=== PATIENT | female | born 1995 | race Caucasian/White ===

== ENCOUNTER 2017-05-29 20:21 | Emergency (ER) | payer BC, MEDICAID ==
--- NOTE | 2017-05-29 20:51 | EDM.PDOC ---
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 The patient reports a previous miscarriage. Since the initial symptoms, the patient has continued to have a small amount of vaginal bleeding and lower abdominal cramping. Onset: Today Onset Date: 05/29/17 Onset Time: 17:00 Duration: Intermittent Location: Reports: Abdomen Quality: Reports: Ache, Dull Severity: Moderate Improves with: Reports: None Worsens with: Reports: None Context: Reports: Other Associated Symptoms: Reports: No Other Symptoms Lower Abdomen Pain Score (Numeric/FACES): 5 - Related Data Allergies Allergy/AdvReac Type Severity Reaction Status Date / Time No Known Allergies Allergy Verified 05/29/17 21:06 Home Meds: Home Meds . [No Known Home Meds] 06/08/16 [History] Past Medical History - Past Health History Medical/Surgical History: Denies Medical/Surgical History Social & Family History - Family History Family Medical History: Noncontributory - Tobacco Use Smoking Status *Q: Unknown Ever Smoked - Caffeine Use Caffeine Use: Reports: Soda - Recreational Drug Use Recreational Drug Use: No - Sexual History Sexual History: Reports: Sexually Active - Living Situation & Occupation Living situation: Reports: Single, with Family Occupation: Employed ED ROS GENERAL - Review of Systems Review Of Systems: ROS reveals no pertinent complaints other than HPI. ED EXAM, GI/ABD - Physical Exam Exam: See Below Exam Limited By: No Limitations General Appearance: Alert, WD/WN, Anxious, Moderate Distress Eyes: Bilateral: Normal Appearance, EOMI Ears: Normal External Exam, Normal Canal, Hearing Grossly Normal, Normal TMs Nose: Normal Inspection, Normal Mucosa, No Blood Throat/Mouth: Normal Inspection, Normal Lips, Normal Teeth, Normal Gums, Normal Oropharynx, Normal Voice, No Airway Compromise Head: Atraumatic, Normocephalic Neck: Normal Inspection, Supple, Non-Tender, Full Range of Motion Respiratory/Chest: No Respiratory Distress, Lungs Clear, Normal Breath Sounds, No Accessory Muscle Use, Chest Non-Tender Cardiovascular: Normal Peripheral Pulses, Regular Rate, Rhythm, No Edema, No Gallop, No JVD, No Murmur, No Rub GI/Abdominal: Normal Bowel Sounds, Soft, No Organomegaly, No Distention, No Abnormal Bruit, No Mass, Pelvis Stable, Tenderness (mild lower abdominal tenderness) (Female) Exam: Deferred Rectal (Female) Exam: Deferred Back Exam: Normal Inspection, Full Range of Motion, NT Extremities: Normal Inspection, Normal Range of Motion, Non-Tender, Normal Capillary Refill, No Pedal Edema Neurological: Alert, Oriented, CN II-XII Intact, Normal Cognition, Normal Gait, Normal Reflexes, No Motor/Sensory Deficits Psychiatric: Normal Affect, Normal Mood Skin Exam: Warm, Dry, Intact, Normal Color, No Rash Lymphatic: No Adenopathy Course - Vital Signs Last Recorded V/S: Last Vital Signs Temp 36.6 C 05/29/17 20:22 Pulse 115 H 05/29/17 20:22 Resp 20 05/29/17 20:22 BP 129/72 05/29/17 20:22 Pulse Ox 100 05/29/17 20:22 - Orders/Labs/Meds Orders: Active Orders 24 hr Category Date Time Status OB Ltd 1 or More Fetus [US] Urgent Exams 05/29/17 21:46 Taken Labs: Laboratory Tests 05/29/17 05/29/17 05/29/17 Range/Units 20:40 20:40 20:45 WBC 15.1 H (5.0-10.0) 10^3/uL RBC 4.04 L (4.2-5.4) 10^6/uL Hgb 12.1 (12.0-16.0) g/dL Hct 34.7 L (37.0-47.0) % MCV 85.9 (80-100) fL MCH 30.0 (27.0-34.0) pg MCHC 34.9 (33.0-35.0) g/dL Plt Count 245 (150-450) 10^3/uL Neut % (Auto) 84.6 H (42.2-75.2) % Lymph % (Auto) 8.9 L (20.5-50.1) % [place] % (Auto) 6.0 (2-8) % Eos % (Auto) 0.4 L (1.0-3.0) % Baso % (Auto) 0.1 (0.0-1.0) % Sodium (135-145) mmol/L Potassium (3.6-5.0) mmol/L Chloride (101-111) mmol/L Carbon Dioxide (21.0-31.0) mmol/L Anion Gap BUN (7-18) mg/dL Creatinine (0.6-1.3) mg/dL Est Cr Clr Drug Dosing mL/min Estimated GFR (MDRD) BUN/Creatinine Ratio Glucose (74-105) mg/dL Calcium (8.4-10.2) mg/dl Total Bilirubin (0.2-1.0) mg/dL AST (10-42) IU/L ALT (10-60) IU/L Alkaline Phosphatase (42-121) IU/L Total Protein (6.7-8.2) g/dl Albumin (3.2-5.5) g/dl Globulin Albumin/Globulin Ratio HCG, Qual HCG, Quant (0-25) mIU/ml Beta HCG, Quant mIU/ml Urine Color Yellow (YELLOW) Urine Appearance Slightly cloudy (CLEAR) Urine pH 5.5 (5.0-9.0) Ur Specific [place] <= 1.005 (1.005-1.030) Urine Protein Negative (NEGATIVE) Urine Glucose (UA) Negative (NEGATIVE) Urine Ketones Negative (NEGATIVE) Urine Occult Blood Large H (NEGATIVE) Urine Nitrite Negative (NEGATIVE) Urine Bilirubin Negative (NEGATIVE) Urine Urobilinogen 0.2 (0.2-1.0) mg/dL Ur Leukocyte Esterase Small H (NEGATIVE) Urine RBC 30-40 H /HPF Urine WBC 30-40 H (0-5/HPF) /HPF Ur Epithelial Cells Moderate H /HPF Urine Bacteria Moderate H (0-FEW/HPF) /HPF Urine Opiates Screen Negative (NEGATIVE) Ur Oxycodone Screen Negative (NEGATIVE) Urine Methadone Screen Negative (NEGATIVE) Ur Barbiturates Screen Negative (NEGATIVE) U Tricyclic Antidepress Negative (NEGATIVE) Ur Phencyclidine Scrn Negative (NEGATIVE) Ur Amphetamine Screen Negative (NEGATIVE) U Methamphetamines Scrn Negative (NEGATIVE) Urine MDMA Screen Negative (NEGATIVE) U Benzodiazepines Scrn Negative (NEGATIVE) Urine Cocaine Screen Negative (NEGATIVE) U Marijuana (THC) Screen Negative (NEGATIVE) Blood Type 05/29/17 05/29/17 05/29/17 Range/Units 20:45 20:45 20:45 WBC (5.0-10.0) 10^3/uL RBC (4.2-5.4) 10^6/uL Hgb (12.0-16.0) g/dL Hct (37.0-47.0) % MCV (80-100) fL MCH (27.0-34.0) pg MCHC (33.0-35.0) g/dL Plt Count (150-450) 10^3/uL Neut % (Auto) (42.2-75.2) % Lymph % (Auto) (20.5-50.1) % [place] % (Auto) (2-8) % Eos % (Auto) (1.0-3.0) % Baso % (Auto) (0.0-1.0) % Sodium 137 (135-145) mmol/L Potassium 3.6 (3.6-5.0) mmol/L Chloride 104 (101-111) mmol/L Carbon Dioxide 23.0 (21.0-31.0) mmol/L Anion Gap 13.6 BUN 5 L (7-18) mg/dL Creatinine 0.5 L (0.6-1.3) mg/dL Est Cr Clr Drug Dosing 135.43 mL/min Estimated GFR (MDRD) > 60 BUN/Creatinine Ratio 10.00 Glucose 92 (74-105) mg/dL Calcium 9.2 (8.4-10.2) mg/dl Total Bilirubin 0.6 (0.2-1.0) mg/dL AST 16 (10-42) IU/L ALT 9 L (10-60) IU/L Alkaline Phosphatase 56 (42-121) IU/L Total Protein 7.0 (6.7-8.2) g/dl Albumin 3.8 (3.2-5.5) g/dl Globulin 3.2 Albumin/Globulin Ratio 1.19 HCG, Qual Cancelled HCG, Quant > 1370 H (0-25) mIU/ml Beta HCG, Quant 87716 mIU/ml Urine Color (YELLOW) Urine Appearance (CLEAR) Urine pH (5.0-9.0) Ur Specific [place] (1.005-1.030) Urine Protein (NEGATIVE) Urine Glucose (UA) (NEGATIVE) Urine Ketones (NEGATIVE) Urine Occult Blood (NEGATIVE) Urine Nitrite (NEGATIVE) Urine Bilirubin (NEGATIVE) Urine Urobilinogen (0.2-1.0) mg/dL Ur Leukocyte Esterase (NEGATIVE) Urine RBC /HPF Urine WBC (0-5/HPF) /HPF Ur Epithelial Cells /HPF Urine Bacteria (0-FEW/HPF) /HPF Urine Opiates Screen (NEGATIVE) Ur Oxycodone Screen (NEGATIVE) Urine Methadone Screen (NEGATIVE) Ur Barbiturates Screen (NEGATIVE) U Tricyclic Antidepress (NEGATIVE) Ur Phencyclidine Scrn (NEGATIVE) Ur Amphetamine Screen (NEGATIVE) U Methamphetamines Scrn (NEGATIVE) Urine MDMA Screen (NEGATIVE) U Benzodiazepines Scrn (NEGATIVE) Urine Cocaine Screen (NEGATIVE) U Marijuana (THC) Screen (NEGATIVE) Blood Type AB POSITIVE Departure - Departure Time of Disposition: 23:09 Disposition: Home, Self-Care 01 Condition: Fair Clinical Impression: Miscarriage - Discharge Information Instructions: Miscarriage, [id number] Forms: ED Department Discharge Care Plan Goals: The patient was advised of the examination, lab and ultrasound results during the visit. 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 If the patient has any additional symptoms or further concerns, the patient should follow-up with her briquette molder provider or return to the emergency department. - My Orders Last 24 Hours: My Active Orders 05/29/17 21:46 OB Ltd 1 or More Fetus [US] Urgent - Assessment/Plan Last 24 Hours: My Active Orders 05/29/17 21:46 OB Ltd 1 or More Fetus [US] Urgent
[2017-05-29 21:06] VITALS: BP 129/72
[2017-05-29 21:13] LABS: CHLORIDE,CL 104 mmol/L (101-111); SODIUM,NA 137 mmol/L (135-145)
== END 2017-05-29 23:17 | disposition home or self-care (01) ==
LOC: DL.ED 20:21
DX: O03.9 Complete or unspecified spontaneous abortion without complication (principal)
CPT/HCPCS: 36415; 76815; 80053; 80305; 81001; 84702; 85025; 86900; 86901; 99284

== ENCOUNTER 2017-05-30 09:25 | Observation (INO) | payer BC, MEDICAID ==
[2017-05-30 10:37] LABS: CHLORIDE,CL 104 mmol/L (101-111); SODIUM,NA 136 mmol/L (135-145)
[2017-05-30] MEDS ORDERED: Ketorolac 30 MG/ML SDV IM ONE (10:58)
--- NOTE | 2017-05-30 11:03 | EDM.PDOC ---
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 P 0, SAB2, L0 at 17 weeks gestation. Onset of pelvic cramping and vaginal bleeding yesterday. Patient was seen here last night and had an ultrasound confirming demise. Today at 0830 hours patient felt urge to urinate and passed an intact fetus into the toilet. Documented RH positive. 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 has had miscarriage in the past Social & Family History - Family History Family Medical History: Noncontributory - Tobacco Use Smoking Status *Q: Unknown Ever Smoked Second Hand Smoke Exposure: No - Caffeine Use Caffeine Use: Reports: Soda - Recreational Drug Use Recreational Drug Use: No - Sexual History Sexual History: Reports: Sexually Active - Living Situation & Occupation Living situation: Reports: Single, with Family Occupation: Employed ED ROS GENERAL - Review of Systems Review Of Systems: ROS reveals no pertinent complaints other than HPI. ED EXAM - Physical Exam Exam: See Below General Appearance: Alert, WD/WN, No Apparent Distress Neck: Normal Inspection, Supple, Non-Tender, Full Range of Motion Respiratory/Chest: No Respiratory Distress, Lungs Clear, Normal Breath Sounds, No Accessory Muscle Use, Chest Non-Tender Cardiovascular: Normal Peripheral Pulses, Regular Rate, Rhythm, No Edema, No Gallop, No JVD, No Murmur, No Rub GI/Abdominal: Other (small firm, mildly tender uterus) Rectal Exam: Deferred Extremities: Normal Inspection, Normal Range of Motion, Non-Tender, Normal Capillary Refill, No Pedal Edema Neurological: Alert, Oriented, CN II-XII Intact, Normal Cognition, Normal Gait, Normal Reflexes, No Motor/Sensory Deficits Psychiatric: Normal Affect, Normal Mood Skin Exam: Warm, Dry, Intact, Normal Color, No Rash Lymphatic: No Adenopathy Course - Vital Signs Last Recorded V/S: Last Vital Signs Temp 37.0 C 05/30/17 09:37 Pulse 105 H 05/30/17 09:37 Resp 18 05/30/17 09:37 BP 116/80 05/30/17 09:37 Pulse Ox 100 05/30/17 09:37 - Orders/Labs/Meds Labs: Laboratory Tests 05/30/17 05/30/17 05/30/17 Range/Units 10:09 10:09 10:09 WBC 17.0 H (5.0-10.0) 10^3/uL RBC 3.82 L (4.2-5.4) 10^6/uL Hgb 11.6 L (12.0-16.0) g/dL Hct 32.9 L (37.0-47.0) % MCV 86.1 (80-100) fL MCH 30.4 (27.0-34.0) pg MCHC 35.3 H (33.0-35.0) g/dL Plt Count 234 (150-450) 10^3/uL Neut % (Auto) 87.9 H (42.2-75.2) % Lymph % (Auto) 6.5 L (20.5-50.1) % [place] % (Auto) 5.2 (2-8) % Eos % (Auto) 0.3 L (1.0-3.0) % Baso % (Auto) 0.1 (0.0-1.0) % Sodium 136 (135-145) mmol/L Potassium 4.1 (3.6-5.0) mmol/L Chloride 104 (101-111) mmol/L Carbon Dioxide 23.0 (21.0-31.0) mmol/L Anion Gap 13.1 BUN 5 L (7-18) mg/dL Creatinine 0.6 (0.6-1.3) mg/dL Est Cr Clr Drug Dosing TNP Estimated GFR (MDRD) > 60 BUN/Creatinine Ratio 8.33 Glucose 80 (74-105) mg/dL Calcium 8.9 (8.4-10.2) mg/dl Total Bilirubin 0.6 (0.2-1.0) mg/dL AST 15 (10-42) IU/L ALT 7 L (10-60) IU/L Alkaline Phosphatase 59 (42-121) IU/L Total Protein 6.7 (6.7-8.2) g/dl Albumin 3.4 (3.2-5.5) g/dl Globulin 3.3 Albumin/Globulin Ratio 1.03 HCG, Quant > 1370 H (0-25) mIU/ml Beta HCG, Quant 64261 mIU/ml Urine Color (YELLOW) Urine Appearance (CLEAR) Urine pH (5.0-9.0) Ur Specific [place] (1.005-1.030) Urine Protein (NEGATIVE) Urine Glucose (UA) (NEGATIVE) Urine Ketones (NEGATIVE) Urine Occult Blood (NEGATIVE) Urine Nitrite (NEGATIVE) Urine Bilirubin (NEGATIVE) Urine Urobilinogen (0.2-1.0) mg/dL Ur Leukocyte Esterase (NEGATIVE) Urine RBC /HPF Urine WBC (0-5/HPF) /HPF Ur Epithelial Cells /HPF Urine Bacteria (0-FEW/HPF) /HPF Urine Mucus /LPF 05/30/17 Range/Units 10:13 WBC (5.0-10.0) 10^3/uL RBC (4.2-5.4) 10^6/uL Hgb (12.0-16.0) g/dL Hct (37.0-47.0) % MCV (80-100) fL MCH (27.0-34.0) pg MCHC (33.0-35.0) g/dL Plt Count (150-450) 10^3/uL Neut % (Auto) (42.2-75.2) % Lymph % (Auto) (20.5-50.1) % [place] % (Auto) (2-8) % Eos % (Auto) (1.0-3.0) % Baso % (Auto) (0.0-1.0) % Sodium (135-145) mmol/L Potassium (3.6-5.0) mmol/L Chloride (101-111) mmol/L Carbon Dioxide (21.0-31.0) mmol/L Anion Gap BUN (7-18) mg/dL Creatinine (0.6-1.3) mg/dL Est Cr Clr Drug Dosing Estimated GFR (MDRD) BUN/Creatinine Ratio Glucose (74-105) mg/dL Calcium (8.4-10.2) mg/dl Total Bilirubin (0.2-1.0) mg/dL AST (10-42) IU/L ALT (10-60) IU/L Alkaline Phosphatase (42-121) IU/L Total Protein (6.7-8.2) g/dl Albumin (3.2-5.5) g/dl Globulin Albumin/Globulin Ratio HCG, Quant (0-25) mIU/ml Beta HCG, Quant mIU/ml Urine Color Red (YELLOW) Urine Appearance Turbid (CLEAR) Urine pH 8.5 (5.0-9.0) Ur Specific [place] 1.020 (1.005-1.030) Urine Protein 100 H (NEGATIVE) Urine Glucose (UA) Negative (NEGATIVE) Urine Ketones 40 H (NEGATIVE) Urine Occult Blood Large H (NEGATIVE) Urine Nitrite Negative (NEGATIVE) Urine Bilirubin Small H (NEGATIVE) Urine Urobilinogen 0.2 (0.2-1.0) mg/dL Ur Leukocyte Esterase Negative (NEGATIVE) Urine RBC >100 H /HPF Urine WBC 0-5 (0-5/HPF) /HPF Ur Epithelial Cells Rare /HPF Urine Bacteria Rare (0-FEW/HPF) /HPF Urine Mucus Occasional /LPF Meds: Medications Discontinued Medications Generic Name Dose Route Start Last Admin Trade Name Bhupinder PRN Reason Stop Dose Admin Ketorolac Tromethamine 30 mg 05/30/17 10:58 Toradol IM 05/30/17 10:59 ONETIME ONE - Radiology Interpretation Free Text/Narrative:: 05/29/17 ultrasound: Per rad report reveals demise of the single intrauterine fetus having a gestational age of 16 weeks 2 days. Almost no intrauterine amniotic fluid. - Re-Assessments/Exams Free Text/Narrative Re-Assessment/Exam: 05/30/17 10:[address] Urbano. Pelvic examination deferred at this time. Departure - Departure Time of Disposition: 10:58 (Dr. Urbano) Disposition: Refer to Observation Condition: Fair Clinical Impression: Spontaneous miscarriage - Discharge Information Instructions: Miscarriage Forms: ED Department Discharge Additional Instructions: Ibuprofen 200mg 3 times by mouth every 6 hours with food as needed for pain or cramping. Dr. Beasley's nurse will contact you for follow up appointment. Return to ER if you develop fever or uncontrolled pain or heavy vaginal bleeding. I have read and agree with the documentation that has been completed regarding this visit. By signing this record, I attest that the documentation was completed in my physical presence and is an accurate record of the encounter.
--- NOTE | 2017-05-30 11:55 | PCM.HP ---
H&P History of Present Illness - General Date of Service: 05/30/17 - History of Present Illness Initial Comments - Free Text/Narative: 21-year-old presented to the ED after spontaneous miscarriage of 17-week fetus at home. She was seen in the ED yesterday where miscarriage was confirmed. Patient was discharged home at that time. Today, she had increased pain and bleeding. She miscarried the fetus in the bathroom at home. The placenta delivered in the ED. Patient has had minimal bleeding since then. She complains of some lower abdominal cramping but has no other complaints. Emotionally, her affect is somewhat flat but she states she is doing fine. Lower Abdomen Pain Score (Numeric/FACES): 6 - Related Data Allergies/Adverse Reactions: Allergies Allergy/AdvReac Type Severity Reaction Status Date / Time No Known Allergies Allergy Verified 05/30/17 09:35 Home Medications: Home Meds Vit #108/Iron/FA [ One Tablet] 1 tab PO DAILY 05/30/17 [History ] Past Medical History - Past Health History Medical/Surgical History: Denies Medical/Surgical History RN REHABILITATION History: Reports: Other (See Below) Other OB/BYN History: had some first trimester spotting with this . has had miscarriage in the past Social & Family History - Family History Family Medical History: Noncontributory - Tobacco Use Smoking Status *Q: Unknown Ever Smoked Second Hand Smoke Exposure: No - Caffeine Use Caffeine Use: Reports: Soda - Recreational Drug Use Recreational Drug Use: No - Sexual History Sexual History: Reports: Sexually Active - Living Situation & Occupation Living situation: Reports: Single, with Family Occupation: Employed H&P Review of Systems - Review of Systems: Review Of Systems: See Below General: Reports: No Symptoms HEENT: Reports: No Symptoms Pulmonary: Reports: No Symptoms Cardiovascular: Reports: No Symptoms Gastrointestinal: Reports: Abdominal Pain Genitourinary: Reports: No Symptoms Musculoskeletal: Reports: No Symptoms Skin: Reports: No Symptoms Exam - Exam Exam: See Below - Vital Signs Vital Signs: Last Vital Signs Temp 37.0 C 05/30/17 09:37 Pulse 105 H 05/30/17 09:37 Resp 18 05/30/17 09:37 BP 116/80 05/30/17 09:37 Pulse Ox 100 05/30/17 09:37 Weight: 60.328 kg - Exam General: Alert, Oriented HEENT: Conjunctiva Clear, Mucosa Moist & [place] Abdomen: Normal Bowel Sounds, Other (Minimal tenderness to suprapubic region. Uterus is not palpable) - Patient Data Lab Results Last 24 hrs: Laboratory Results - last 24 hr 05/30/17 05/30/17 05/30/17 Range/Units 10:09 10:09 10:09 WBC 17.0 H (5.0-10.0) 10^3/uL RBC 3.82 L (4.2-5.4) 10^6/uL Hgb 11.6 L (12.0-16.0) g/dL Hct 32.9 L (37.0-47.0) % MCV 86.1 (80-100) fL MCH 30.4 (27.0-34.0) pg MCHC 35.3 H (33.0-35.0) g/dL Plt Count 234 (150-450) 10^3/uL Neut % (Auto) 87.9 H (42.2-75.2) % Lymph % (Auto) 6.5 L (20.5-50.1) % [place] % (Auto) 5.2 (2-8) % Eos % (Auto) 0.3 L (1.0-3.0) % Baso % (Auto) 0.1 (0.0-1.0) % Sodium 136 (135-145) mmol/L Potassium 4.1 (3.6-5.0) mmol/L Chloride 104 (101-111) mmol/L Carbon Dioxide 23.0 (21.0-31.0) mmol/L Anion Gap 13.1 BUN 5 L (7-18) mg/dL Creatinine 0.6 (0.6-1.3) mg/dL Est Cr Clr Drug Dosing TNP Estimated GFR (MDRD) > 60 BUN/Creatinine Ratio 8.33 Glucose 80 (74-105) mg/dL Calcium 8.9 (8.4-10.2) mg/dl Total Bilirubin 0.6 (0.2-1.0) mg/dL AST 15 (10-42) IU/L ALT 7 L (10-60) IU/L Alkaline Phosphatase 59 (42-121) IU/L Total Protein 6.7 (6.7-8.2) g/dl Albumin 3.4 (3.2-5.5) g/dl Globulin 3.3 Albumin/Globulin Ratio 1.03 HCG, Quant > 1370 H (0-25) mIU/ml Beta HCG, Quant 88688 mIU/ml Urine Color (YELLOW) Urine Appearance (CLEAR) Urine pH (5.0-9.0) Ur Specific [place] (1.005-1.030) Urine Protein (NEGATIVE) Urine Glucose (UA) (NEGATIVE) Urine Ketones (NEGATIVE) Urine Occult Blood (NEGATIVE) Urine Nitrite (NEGATIVE) Urine Bilirubin (NEGATIVE) Urine Urobilinogen (0.2-1.0) mg/dL Ur Leukocyte Esterase (NEGATIVE) Urine RBC /HPF Urine WBC (0-5/HPF) /HPF Ur Epithelial Cells /HPF Urine Bacteria (0-FEW/HPF) /HPF Urine Mucus /LPF 05/30/17 Range/Units 10:13 WBC (5.0-10.0) 10^3/uL RBC (4.2-5.4) 10^6/uL Hgb (12.0-16.0) g/dL Hct (37.0-47.0) % MCV (80-100) fL MCH (27.0-34.0) pg MCHC (33.0-35.0) g/dL Plt Count (150-450) 10^3/uL Neut % (Auto) (42.2-75.2) % Lymph % (Auto) (20.5-50.1) % [place] % (Auto) (2-8) % Eos % (Auto) (1.0-3.0) % Baso % (Auto) (0.0-1.0) % Sodium (135-145) mmol/L Potassium (3.6-5.0) mmol/L Chloride (101-111) mmol/L Carbon Dioxide (21.0-31.0) mmol/L Anion Gap BUN (7-18) mg/dL Creatinine (0.6-1.3) mg/dL Est Cr Clr Drug Dosing Estimated GFR (MDRD) BUN/Creatinine Ratio Glucose (74-105) mg/dL Calcium (8.4-10.2) mg/dl Total Bilirubin (0.2-1.0) mg/dL AST (10-42) IU/L ALT (10-60) IU/L Alkaline Phosphatase (42-121) IU/L Total Protein (6.7-8.2) g/dl Albumin (3.2-5.5) g/dl Globulin Albumin/Globulin Ratio HCG, Quant (0-25) mIU/ml Beta HCG, Quant mIU/ml Urine Color Red (YELLOW) Urine Appearance Turbid (CLEAR) Urine pH 8.5 (5.0-9.0) Ur Specific [place] 1.020 (1.005-1.030) Urine Protein 100 H (NEGATIVE) Urine Glucose (UA) Negative (NEGATIVE) Urine Ketones 40 H (NEGATIVE) Urine Occult Blood Large H (NEGATIVE) Urine Nitrite Negative (NEGATIVE) Urine Bilirubin Small H (NEGATIVE) Urine Urobilinogen 0.2 (0.2-1.0) mg/dL Ur Leukocyte Esterase Negative (NEGATIVE) Urine RBC >100 H /HPF Urine WBC 0-5 (0-5/HPF) /HPF Ur Epithelial Cells Rare /HPF Urine Bacteria Rare (0-FEW/HPF) /HPF Urine Mucus Occasional /LPF Result Diagrams: 05/30/17 10:09 05/30/17 10:09 *Q Meaningful Use (ADM) - VTE *Q VTE Criteria *Q: - Stroke *Q Stroke Criteria *Q: - AMI *Q AMI Criteria *Q: - Problem List (1) Miscarriage SNOMED Code(s): 41136145 ICD Code: O03.9 - COMPLETE OR UNSP SPONTANEOUS WITHOUT COMPLICATION Status: Acute (2) Spontaneous miscarriage SNOMED Code(s): 78761575 ICD Code: O03.9 - COMPLETE OR UNSP SPONTANEOUS WITHOUT COMPLICATION Status: Acute Problem List Initiated/Reviewed/Updated: Yes Assessment/Plan Comment:: 21-year-old female status post 2nd trimester spontaneous miscarriage Patient is currently stable with minimal pain or vaginal bleeding. Will give 1 dose Toradol for pain followed by ibuprofen as needed. Will monitor for approximately 8 hours. If patient is doing well, she can be discharged at that time. I did discuss the option for sending the fetus for pathology. Patient does not think that she would like to do that but will consider it. Patient has also declined to see the fetus. My nurse will contact the patient tomorrow to see how she is doing and schedule an appointment for the following week. She was advised to abstain from intercourse until that appointment. Patient voiced her understanding, and all questions were answered. Aleksandra Urbano MD
[2017-05-30] MEDS ORDERED: Sodium Chloride 0.9% 10 ML Syringe FLUSH PRN (13:31)
[2017-05-30 16:48] VITALS: BP 111/72
--- NOTE | 2017-06-10 13:38 | PCM.SN ---
- Free Text/Narrative Note: 05/30/17 Discharge summary Patient observed for 5-6 hours as planned. No significant pain or vaginal bleeding. She was discharged home with follow-up with me in about 10 days. Reasons to return sooner or discussed with the patient. For more information please see history and physical. Aleksandra Urbano MD
== END 2017-05-30 16:45 | disposition home or self-care (01) ==
LOC: DL.ED 09:25 → DL.MS 12:12 → UNDOADMOB 12:12 → DL.MS 12:30 → UNDODISOB 16:45
PROVIDERS: ADMIT Family Medicine; ATTEND Family Medicine
DX: O03.9 Complete or unspecified spontaneous abortion without complication (principal)
CPT/HCPCS: 36415; 80053; 81001; 84702; 85025; 96372; 99285; J1885; G0378

== ENCOUNTER 2019-03-08 11:11 | Inpatient (IN) | payer BC, MEDICAID ==
[2019-03-08] MEDS ORDERED: Tranexamic Acid 1,000 MG in Sodium Chloride 0.9% 100 ML IV PRN (12:17)
[2019-03-08] MEDS ORDERED: Methylergonovine 0.2 MG/1 ML Amp IM PRN (12:17)
[2019-03-08] MEDS ORDERED: fentaNYL 100 MCG/2 ML SDV IVPUSH PRN (12:17)
[2019-03-08] MEDS ORDERED: Lactated Ringers 500 ML IV ONE (12:17)
[2019-03-08] MEDS ORDERED: Sodium Chloride 0.9% 10 ML Syringe FLUSH PRN (12:17)
[2019-03-08] MEDS ORDERED: Ondansetron 4 MG/2 ML SDV IV PRN (12:17)
[2019-03-08] MEDS ORDERED: Misoprostol 400 MCG (4 X 100 MCG TAB) RECTAL PRN (12:17)
[2019-03-08] MEDS ORDERED: Carboprost Tromethamine 250 MCG/1 ML Amp IM PRN (12:17)
[2019-03-08] MEDS ORDERED: Lidocaine 1% 30 ML SDV INJECT PRN (12:17)
--- NOTE | 2019-03-08 12:17 | PCM.LDHP ---
L&D History of Present Illness - General Date of Service: 03/08/19 Admit Problem/Dx: Admission Diagnosis/Problem Admission Diagnosis/Problem Source of Information: Patient History Limitations: Reports: No Limitations - History of Present Illness Introduction:: at 38w5d presents to L&D from clinic for IOL due to mild pre-eclampsia. Patient has had mildly elevated blood pressures for the past 2 days. She did a 24-hour urine protein which was 470. No headaches or vision changes. Baby has been active. She has had some Mahad-Chisholm contractions but no regular contractions. No vaginal bleeding or leaking of fluid. was complicated by history of miscarriage x2. Patient was on vaginal progresterone from around 10 weeks to 36 weeks gestation. 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 has had miscarriage in the past Hematologic History: Reports: Anemia Social & Family History - Family History Family Medical History: Noncontributory Respiratory: Reports: Asthma Other Respiratory Family Hisory: dad and sister have asthma - Caffeine Use Caffeine Use: Reports: Coffee, Soda - Sexual History Sexual History: Reports: Sexually Active - Living Situation & Occupation Living situation: Reports: Single, with Family Occupation: Employed H&P Review of Systems - Review of Systems: Review Of Systems: See Below General: Reports: No Symptoms HEENT: Reports: No Symptoms Pulmonary: Reports: No Symptoms Cardiovascular: Reports: No Symptoms Gastrointestinal: Reports: No Symptoms Genitourinary: Reports: No Symptoms Musculoskeletal: Reports: No Symptoms Skin: Reports: No Symptoms Psychiatric: Reports: Anxiety Neurological: Reports: No Symptoms Hematologic/Lymphatic: Reports: No Symptoms L&D Exam - Exam Exam: See Below - OB Specific Fundal Height In cm: 39 Contraction Intensity: Irritability Movement: Active Heart Tones: Present Heart Tones per Min: 140 Heart Rate (FHR) Variability: Moderate (6-25 bmp) Presentation: Vertex - Paul Score Paul Score Cervix Position: Anterior Paul Score Consistency: Soft Paul Score Effacement: 51-70% Paul Score Dilation: 3-4 cm Paul Score Infant's Station: -2 Paul Score Total: 9 - Exam General: Alert, Oriented HEENT: Mucosa Moist & [place], Posterior Pharynx Clear Lungs: Clear to Auscultation, Normal Respiratory Effort Cardiovascular: Regular Rate, Regular Rhythm. No: Systolic Murmur, Diastolic Murmur Genitourinary: Normal external exam Back Exam: Normal Inspection Extremities: Pedal Edema (+1 to lower extremities bilaterally) Skin: Warm, Dry, Intact - Patient Data Result Diagrams: 03/08/19 11:33 03/08/19 11:33 - Problem List (1) Mild pre-eclampsia SNOMED Code(s): 04329310 ICD Code: O14.00 - MILD TO MODERATE PRE-ECLAMPSIA, UNSPECIFIED TRIMESTER Status: Acute Current Visit: Yes (2) care in third trimester SNOMED Code(s): 606501761, 71454013, 24061017, 232372840, 599055111 ICD Code: Z34.93 - ENCNTR FOR SUPRVSN OF NORMAL PREG, UNSP, THIRD TRIMESTER Status: Acute Current Visit: No Problem List Initiated/Reviewed/Updated: Yes Assessment/Plan Comment:: 23-year-old at 38w5d presented to L&D for IOL secondary to mild pre- eclampsia 1. Admit to L&D 2. Initiate pitocin for augmentation 3. AROM when able 4. Closely monitor BPs 5. Expectant management. Anticipate Aleksandra Urbano MD
[2019-03-08] MEDS ORDERED: hydrOXYzine HCl 25 MG Tab PO PRN (12:22)
[2019-03-08] MEDS ORDERED: Nalbuphine 10 MG/1 ML Vial IM PRN (12:22)
[2019-03-08] MEDS ORDERED: Nalbuphine 10 MG/1 ML Vial IV PRN (12:22)
[2019-03-08] MEDS ORDERED: Lactated Ringers 1,000 ML IV SCH (12:30)
[2019-03-08] MEDS: Oxytocin/Normal Saline 30 UNIT/500 ML BAG IV SCH (13:03)
[2019-03-08] MEDS ORDERED: Simethicone 80 MG Tab.Chew PO PRN (23:38)
[2019-03-08] MEDS ORDERED: Oxytocin 10 Units/1 ML SDV IM PRN (23:38)
[2019-03-08] MEDS ORDERED: Benzocaine/Menthol 20%-0.5% Spray 56 GM Canister TOP PRN (23:38)
--- NOTE | 2019-03-08 23:47 | PCM.DEL ---
L & D Note - General Info Date of Service: 03/08/19 Mother's Due Date: 03/17/19 - Delivery Note Labor: Augmented by ARM, Augmented by Oxytocin Delivery Outcome: Livebirth Delivery Method: Spontaneous Vaginal Delivery-Single Infant Delivery Mode: Vacuum Extraction Presentation: Vertex Nuchal Cord: None Anesthesia Type: Local Anesthetic: Lidocaine (Xylocaine) 1% Plain Local Anesthetic Volume: Other (10 cc) Amniotic Fluid Description: Clear Episiotomy Type: None Laceration: 2nd Degree, Perineal Suture type: Vicryl Suture size: 3-0 Placenta: Intact, Spontaneous Cord: 3 Vessels Estimated Blood Loss: 250 Resuscitation Needed: Yes : Bulb Syringe, Stimulated, Warmed, [place] Used, Warmer Used Provider: Aleksandra Urbano Score 1 min: 1 Score 5 min: 7 Delivery Comments (Free Text/Narrative):: 23-year-old presented to L&D for IOL due to mild pre-eclampsia. Pitocin was started for induction of labor. About 3 hours later, AROM was performed for moderate amount of clear fluid. Patient progressed to complete dilation. She then pushed for about 30 minutes. Due to maternal fatigue and heart rate deceleration with contractions, the decision was made to proceed with vacuum-assisted vaginal delivery. A low-profile vacuum was applied at 2300. Vacuum was used for 11 minutes with good movement of the head. At 2311, patient delivered a viable female . Dr. Jay was called due to persistently low heart rate. A posterior hand was noted near the face. Baby was initially placed on mother's abdomen but was then taken to the warmer for resuscitation after cord was clamped x2 and cut. Baby weighed 7 pounds, 12 ounces. Apgars were 1 and 7 at 1 and 5 minutes respectively. Cord blood was collected. A second degree perineal laceration was repaired in the usual fashion. The placenta delivered spontaneously about 15 minutes after delivery of the baby. Pitocin was started. Bleeding was noted to be appropriate, and uterine fundus was noted to be firm. The patient tolerated the procedure well, and there were no immediate complications. Induction Criteria - Paul Score Paul Score Dilation: 3-4 cm Paul Score Effacement: 60-70% Paul Score 's Station: -1 ,0 Paul Score Consistency: Soft Paul Score Cervix Position: Anterior Paul Score Total: 10 Paul Score Presenting Part: Reports: Cephalic - Induction Gestational Age >/= 39 wks: No Medical Indication: Mild pre-eclampsia Estimated Pelvis: Reports: Adequate Reassuring Monitoring Strip: Yes Absence of Tachy Systole: Yes - Augmentation Estimated Pelvis: Reports: Adequate Weight Estimated:: Reports: AGA Reassuring Monitoring Strip: Yes Absence of Tachy Systole: Yes Vacuum Extractor Progress Note - Alternative Labor Strategies Considered Alternative Labor Strategies Considered:: Reports: Yes Strategies Considered:: Reports: Contraction Intensity Adequate, Position Changes Used to Facilitate Rotation & Descent, Empty Bladder Indications Considered:: Reports: Yes Indications:: Reports: Shortening of 2nd Stage for Maternal Benefit, Suspicion of Immediate or Potential Compromise Time Out:: Reports: No - Patient Prepared Patient Prepared:: Reports: Yes Informed Consent:: Reports: Verbal Risks: Reports: Yes Risks Include:: Reports: Laceration, Shoulder Dystocia, Maternal Injury - Probability of Success High Probability of Success:: Reports: Yes Weight Estimated:: Reports: AGA Patient Diabetic:: Reports: No Pelvis Adequate:: Reports: Yes Asynclitic:: Reports: No Station:: +2 - Application Time Maximum Application Time & Number of Pop-Offs Predetermined:: Reports: Yes (3) Total Application Time (min): *max=20min: 11 Number of Times Cup Disengaged:: 0 Type of Vacuum Used:: Reports: Low profile Vacuum Extraction: Successful - Exit Strategy Exit strategy available:: Reports: Yes and resuscitation teams readily available:: Reports: Yes - General Info Date of Service: 03/08/19 - Patient Data Vitals - Most Recent: Last Vital Signs Temp 36.4 C 03/08/19 21:00 Pulse 98 03/08/19 21:30 Resp 20 03/08/19 21:30 BP 149/88 H 03/08/19 21:30 Pulse Ox 98 03/08/19 12:30 Weight - Most Recent: 90.265 kg Lab Results Last 24 Hours: Laboratory Results - last 24 hr 03/08/19 03/08/19 Range/Units 11:33 11:33 WBC 10.0 (5.0-10.0) 10^3/uL RBC 4.03 L (4.2-5.4) 10^6/uL Hgb 12.1 (12.0-16.0) g/dL Hct 35.6 L (37.0-47.0) % MCV 88.3 (80-100) fL MCH 30.0 (27.0-34.0) pg MCHC 34.0 (33.0-35.0) g/dL Plt Count 235 (150-450) 10^3/uL BUN 5 L (7-18) mg/dL Creatinine 0.5 L (0.6-1.3) mg/dL Est Cr Clr Drug Dosing TNP Estimated GFR (MDRD) > 60 Uric Acid 3.3 (2.6-7.2) mg/dL AST 17 (10-42) IU/L ALT 11 (10-60) IU/L Lactate Dehydrogenase 132 (91-180) IU/L Med Orders - Current: Current Medications Acetaminophen (Tylenol) 650 mg PO Q4H PRN PRN Reason: Pain (Mild 1-3) and fever Benzocaine/Menthol (Dermoplast Pain Relief [place]) 0 gm TOP Q4H PRN PRN Reason: Perineal comfort measures Carboprost Tromethamine (Hemabate Ds) 250 mcg IM ASDIRECTED PRN PRN Reason: HEMORRHAGE Docusate Sodium (Colace) 100 mg PO BID PRN PRN Reason: Constipation Hydroxyzine HCl (Atarax) 50 mg PO BID PRN PRN Reason: Anxiety Oxytocin/Sodium Chloride (Pitocin In Ns 30 Unit/500 Ml) 30 unit in 500 mls @ 2 mls/hr IV TITRATE PRESTON; Protocol Last Titration: 03/08/19 23:28 Dose: 500 mls/hr Ibuprofen (Motrin) 800 mg PO Q8H PRN PRN Reason: Mild Pain or Fever Methylergonovine Maleate (Methergine) 0.2 mg IM ASDIRECTED PRN PRN Reason: Hemorrhage Misoprostol (Cytotec) 800 mcg RECTAL ASDIRECTED PRN PRN Reason: Hemorrhage Ondansetron HCl (Zofran) 4 mg IV Q4H PRN PRN Reason: Nausea/Vomiting Oxytocin (Pitocin) 10 unit IM ONETIME PRN PRN Reason: Bleeding Simethicone (Simethicone) 80 mg PO Q4H PRN PRN Reason: Gas Sodium Chloride (Saline Flush) 10 ml FLUSH ASDIRECTED PRN PRN Reason: Keep Vein Open Discontinued Medications Fentanyl (Sublimaze) 50 mcg IVPUSH Q1H PRN PRN Reason: Pain (moderate 4-6) Lactated Ringer's (Ringers, Lactated) 500 mls @ 999 mls/hr IV .BOLUS ONE Stop: 03/08/19 12:47 Lactated Ringer's (Ringers, Lactated) 1,000 mls @ 125 mls/hr IV ASDIRECTED PRESTON Last Admin: 03/08/19 13:03 Dose: 125 mls/hr Tranexamic Acid 1,000 mg/ (Sodium Chloride) 110 mls @ 660 mls/hr IV ONETIME PRN PRN Reason: Bleeding Lidocaine HCl (Xylocaine-Mpf 1%) 30 ml INJECT ASDIRECTED PRN PRN Reason: Perineal Repair Last Admin: 03/08/19 23:15 Dose: 30 ml Nalbuphine HCl (Nubain) 20 mg IM Q3H PRN PRN Reason: Pain Last Admin: 03/08/19 20:36 Dose: 20 mg Nalbuphine HCl (Nubain) 10 mg IV Q3H PRN PRN Reason: Pain - Problem List & Annotations (1) Status post vacuum-assisted vaginal delivery SNOMED Code(s): 704843944, 50291554620326598 Code(s): Z87.59 - PERSONAL HISTORY OF COMP OF PREG, CHLDBRTH AND THE PUERP Status: Acute Current Visit: Yes (2) Perineal laceration during delivery SNOMED Code(s): 698984049 Code(s): O70.9 - PERINEAL LACERATION DURING DELIVERY, UNSPECIFIED Status: Acute Current Visit: Yes (3) Mild pre-eclampsia SNOMED Code(s): 23146399 Code(s): O14.00 - MILD TO MODERATE PRE-ECLAMPSIA, UNSPECIFIED TRIMESTER Status: Acute Current Visit: Yes (4) care in third trimester SNOMED Code(s): 766379031, 06969851, 01517160, 252225204, 587063762 Code(s): Z34.93 - ENCNTR FOR SUPRVSN OF NORMAL PREG, UNSP, THIRD TRIMESTER Status: Acute Current Visit: No - Problem List Review Problem List Initiated/Reviewed/Updated: Yes - My Orders Last 24 Hours: My Active Orders 03/08/19 12:17 Patient Status [ADT] Routine Notify Provider Vital Signs OB [RC] ASDIRECTED Up ad Dia [RC] ASDIRECTED Acetaminophen [Tylenol] 650 mg PO Q4H PRN Carboprost Tromethamine [Hemabate DS] 250 mcg IM ASDIRECTED PRN Methylergonovine [Methergine] 0.2 mg IM ASDIRECTED PRN Ondansetron [Zofran] 4 mg IV Q4H PRN Sodium Chloride 0.9% [Saline Flush] 10 ml FLUSH ASDIRECTED PRN miSOPROStol [Cytotec] 800 mcg RECTAL ASDIRECTED PRN Saline Lock Insert [OM.PC] Routine Resuscitation Status Routine 03/08/19 12:21 Communication Order [RC] ASDIRECTED Communication Order [RC] ASDIRECTED Communication Order [RC] ASDIRECTED Communication Order [RC] ASDIRECTED Notify Provider [RC] PRN Vaginal Exam [RC] PRN 03/08/19 12:22 hydrOXYzine HCl [Atarax] 50 mg PO BID PRN 03/08/19 12:30 Oxytocin/Normal Saline [Pitocin in NS 30 UNIT/500 ML] 30 unit in 500 ml IV TITRATE 03/08/19 23:38 Vital Signs [RC] PFP Consult to Repair Service Clerk [CONS] Routine Benzocaine/Menthol [Dermoplast Pain Relief [place]] See Dose Instructions TOP Q4H PRN Docusate Sodium [Colace] 100 mg PO BID PRN Ibuprofen [Motrin] 800 mg PO Q8H PRN Oxytocin [Pitocin] 10 unit IM ONETIME PRN Simethicone 80 mg PO Q4H PRN Assess Lochia [WOMSER] Per Unit Routine Assess Uterine Involution [WOMSER] Per Unit Routine Breast Pump [WOMSER] Per Unit Routine Ice Therapy [OM.PC] Per Unit Routine Perineal Care [OM.PC] Per Unit Routine Sitz Bath [OM.PC] Per Unit Routine 03/08/19 Lunch Regular Diet [DIET] - Assessment Assessment:: 23-year-old, now , status post VAVD at 38w5d after IOL for mild pre- eclampsia - Plan Plan:: 1. Initiate routine orders 2. Mother plans to breastfeed 3. Anticipate discharge 03/10/19 Aleksandra Urbano MD
[2019-03-09] MEDS: Oxytocin/Normal Saline 30 UNIT/500 ML BAG IV SCH (01:30)
[2019-03-09] MEDS: Ibuprofen 800 MG Tab PO PRN ×3 (03:55→22:31)
[2019-03-09] MEDS: Acetaminophen 325 MG Tab PO PRN ×2 (08:39→19:29)
[2019-03-09] MEDS: Docusate Sodium 100 MG Cap PO PRN ×2 (08:40→19:29)
[2019-03-10] MEDS: Docusate Sodium 100 MG Cap PO PRN (07:57)
--- NOTE | 2019-03-10 09:26 | PCM.PNPP ---
- General Info Date of Service: 03/09/19 Subjective Update: PPD#1 status post VAVD at 38w5d after IOL for mild pre-eclampsia. Patient is doing well. Tolerating a general diet. Ambulating without difficulty. Voiding and and passing gas. No bowel movement yet. No fever, chills, nausea, vomiting, dizziness or lightheadedness. has been a challenge due to difficult latch. Currently using a nipple shield. Functional Status: Reports: Pain Controlled, Tolerating Diet, Ambulating, Urinating. Denies: New Symptoms - Review of Systems General: Reports: No Symptoms HEENT: Reports: No Symptoms Pulmonary: Reports: No Symptoms Cardiovascular: Reports: No Symptoms Gastrointestinal: Reports: No Symptoms Genitourinary: Reports: No Symptoms Musculoskeletal: Reports: Back Pain Psychiatric: Reports: No Symptoms - General Info Date of Service: 03/09/19 - Patient Data Vital Signs - Most Recent: Last Vital Signs Temp 35.9 C 03/10/19 07:24 Pulse 94 03/10/19 07:24 Resp 18 03/10/19 07:24 BP 133/82 03/10/19 07:24 Pulse Ox 98 03/10/19 07:24 Weight - Most Recent: 90.265 kg Med Orders - Current: Current Medications Acetaminophen (Tylenol) 650 mg PO Q4H PRN PRN Reason: Pain (Mild 1-3) and fever Last Admin: 03/09/19 19:29 Dose: 650 mg Benzocaine/Menthol (Dermoplast Pain Relief [place]) 0 gm TOP Q4H PRN PRN Reason: Perineal comfort measures Last Admin: 03/09/19 03:55 Dose: 1 spray Carboprost Tromethamine (Hemabate Ds) 250 mcg IM ASDIRECTED PRN PRN Reason: HEMORRHAGE Docusate Sodium (Colace) 100 mg PO BID PRN PRN Reason: Constipation Last Admin: 03/10/19 07:57 Dose: 100 mg Hydroxyzine HCl (Atarax) 50 mg PO BID PRN PRN Reason: Anxiety Oxytocin/Sodium Chloride (Pitocin In Ns 30 Unit/500 Ml) 30 unit in 500 mls @ 2 mls/hr IV TITRATE PRESTON; Protocol Last Titration: 03/09/19 03:20 Dose: 0 mls/hr Ibuprofen (Motrin) 800 mg PO Q8H PRN PRN Reason: Mild Pain or Fever Last Admin: 03/09/19 22:31 Dose: 800 mg Methylergonovine Maleate (Methergine) 0.2 mg IM ASDIRECTED PRN PRN Reason: Hemorrhage Misoprostol (Cytotec) 800 mcg RECTAL ASDIRECTED PRN PRN Reason: Hemorrhage Ondansetron HCl (Zofran) 4 mg IV Q4H PRN PRN Reason: Nausea/Vomiting Oxytocin (Pitocin) 10 unit IM ONETIME PRN PRN Reason: Bleeding Simethicone (Simethicone) 80 mg PO Q4H PRN PRN Reason: Gas Sodium Chloride (Saline Flush) 10 ml FLUSH ASDIRECTED PRN PRN Reason: Keep Vein Open Discontinued Medications Fentanyl (Sublimaze) 50 mcg IVPUSH Q1H PRN PRN Reason: Pain (moderate 4-6) Lactated Ringer's (Ringers, Lactated) 500 mls @ 999 mls/hr IV .BOLUS ONE Stop: 03/08/19 12:47 Last Admin: 03/09/19 05:19 Dose: Not Given Lactated Ringer's (Ringers, Lactated) 1,000 mls @ 125 mls/hr IV ASDIRECTED PRESTON Last Admin: 03/08/19 13:03 Dose: 125 mls/hr Tranexamic Acid 1,000 mg/ (Sodium Chloride) 110 mls @ 660 mls/hr IV ONETIME PRN PRN Reason: Bleeding Lidocaine HCl (Xylocaine-Mpf 1%) 30 ml INJECT ASDIRECTED PRN PRN Reason: Perineal Repair Last Admin: 03/08/19 23:15 Dose: 30 ml Nalbuphine HCl (Nubain) 20 mg IM Q3H PRN PRN Reason: Pain Last Admin: 03/08/19 20:36 Dose: 20 mg Nalbuphine HCl (Nubain) 10 mg IV Q3H PRN PRN Reason: Pain - Interaction Disposition, : [place] to Nursery Infant Feeding: Attempted ; Nursed Fair/Poor Support Person: Mother, Other (see below) - Recovery Exam Fundal Tone: Firm Fundal Level: At Umbilicus Fundal Placement: Midline Lochia Amount: Small Lochia Color: Rubra/Red Perineum Description: Intact, Minimal Bruising/Swelling Episiotomy/Laceration: Approximated Bladder Status: Voiding - Exam General: Alert, Oriented HEENT: Pupils Equal Lungs: Clear to Auscultation, Normal Respiratory Effort Cardiovascular: Regular Rate, Regular Rhythm, No Murmurs Extremities: Pedal Edema (1+ to lower extremities bilaterally) Skin: Warm, Dry, Intact - Problem List & Annotations (1) Mild pre-eclampsia SNOMED Code(s): 96973572 Code(s): O14.00 - MILD TO MODERATE PRE-ECLAMPSIA, UNSPECIFIED TRIMESTER Status: Acute (2) care in third trimester SNOMED Code(s): 516961341, 64416653, 11611527, 240578821, 146995129 Code(s): Z34.93 - ENCNTR FOR SUPRVSN OF NORMAL PREG, UNSP, THIRD TRIMESTER Status: Acute (3) Perineal laceration during delivery SNOMED Code(s): 429243090 Code(s): O70.9 - PERINEAL LACERATION DURING DELIVERY, UNSPECIFIED Status: Acute (4) Status post vacuum-assisted vaginal delivery SNOMED Code(s): 292153499, 00049256684820317 Code(s): Z87.59 - PERSONAL HISTORY OF COMP OF PREG, CHLDBRTH AND THE PUERP Status: Acute - Problem List Review Problem List Initiated/Reviewed/Updated: Yes - Assessment Assessment:: 23-year-old, now , PPD#1 status post VAVD at 38w5d after IOL for mild pre- eclampsia - Plan Plan:: 1. Continue routine cares 2. consultation placed for assistance 3. Anticipate discharge 03/10/2019 Aleksandra Urbano MD
--- NOTE | 2019-03-10 09:29 | PCM.DCSUM1 ---
Discharge Summary - Hospital Course Free Text/Narrative:: 23-year-old, now , PPD#2 status post-VAVD at 38w5d after IOL for mild pre- eclampsia Diagnosis: Stroke: No - Discharge Data Discharge Date: 03/10/19 Discharge Disposition: Home, Self-Care 01 Condition: Good - Discharge Diagnosis/Problem(s) (1) Mild pre-eclampsia SNOMED Code(s): 97471315 ICD Code: O14.00 - MILD TO MODERATE PRE-ECLAMPSIA, UNSPECIFIED TRIMESTER Status: Acute (2) care in third trimester SNOMED Code(s): 064963146, 28975121, 59266722, 745819039, 836487753 ICD Code: Z34.93 - ENCNTR FOR SUPRVSN OF NORMAL PREG, UNSP, THIRD TRIMESTER Status: Acute (3) Perineal laceration during delivery SNOMED Code(s): 770133463 ICD Code: O70.9 - PERINEAL LACERATION DURING DELIVERY, UNSPECIFIED Status: Acute (4) Status post vacuum-assisted vaginal delivery SNOMED Code(s): 884379164, 70419837716903591 ICD Code: Z87.59 - PERSONAL HISTORY OF COMP OF PREG, CHLDBRTH AND THE PUERP Status: Acute - Patient Summary/Data Operative Procedure(s) Performed: VAVD Complications: None Consults: Consultations 03/08/19 23:38 Consult to Hat Lining Blocker [CONS] Routine Labs Pending at D/C: None Recommended Follow-up Testing/Procedures: None Planned Operative Procedure(s) after DC: None Hospital Course: Please see subjective section - Patient Instructions Diet: Usual Diet as Tolerated Activity: As Tolerated, No Lifting Over 20 Pounds Driving: May Drive Today Showering/Bathing: May Shower Notify Provider of: Fever, Increased Pain, Swelling and Redness - Discharge Plan *PRESCRIPTION DRUG MONITORING PROGRAM REVIEWED*: Not Applicable *COPY OF PRESCRIPTION DRUG MONITORING REPORT IN PATIENT THAD: Not Applicable Home Medications: Home Meds Mv-Mn/Iron/FA/Herbal/Digestive [ One Tablet] 1 tab PO DAILY 05/30/17 [ History] Ferrous Sulfate 325 mg PO DAILY 03/07/19 [History] Acetaminophen [Tylenol] 650 mg PO Q4H PRN tablet 03/10/19 [Rx] Docusate Sodium [Colace] 100 mg PO BID PRN cap 03/10/19 [Rx] Ibuprofen [Motrin] 800 mg PO Q8H PRN tablet 03/10/19 [Rx] Patient Handouts: Home Care Instructions for Mom Referrals: Aleksandra Urbano MD [Physician] - (6-8 weeks for examination) - Discharge Summary/Plan Comment DC Time >30 min.: No Discharge Summary/Plan Comment: Discharge home today with follow-up in 6-8 weeks for visit. Reasons to present to the ED or clinic prior to follow-up appointment were reviewed. Patient voiced her understanding, and all questions were answered. - General Info Date of Service: 03/10/19 Subjective Update: PPD#2 status post VAVD at 38w5d after IOL for mild pre-eclampsia. Patient is doing well. Tolerating a general diet. Ambulating without difficulty. Voiding and and passing gas. No bowel movement yet. No fever, chills, nausea, vomiting, dizziness or lightheadedness. went well yesterday afternoon. Baby did receive formula x2 when mother was sleeping. Continues to use a nipple shield. Functional Status: Reports: Pain Controlled, Tolerating Diet, Ambulating, Urinating. Denies: New Symptoms - Review of Systems General: Reports: No Symptoms HEENT: Reports: No Symptoms Pulmonary: Reports: No Symptoms Cardiovascular: Reports: No Symptoms Gastrointestinal: Reports: No Symptoms Genitourinary: Reports: No Symptoms Musculoskeletal: Reports: No Symptoms Skin: Reports: No Symptoms - Patient Data Vitals - Most Recent: Last Vital Signs Temp 35.9 C 03/10/19 07:24 Pulse 94 03/10/19 07:24 Resp 18 03/10/19 07:24 BP 133/82 03/10/19 07:24 Pulse Ox 98 03/10/19 07:24 Weight - Most Recent: 90.265 kg Med Orders - Current: Current Medications Acetaminophen (Tylenol) 650 mg PO Q4H PRN PRN Reason: Pain (Mild 1-3) and fever Last Admin: 03/09/19 19:29 Dose: 650 mg Benzocaine/Menthol (Dermoplast Pain Relief [place]) 0 gm TOP Q4H PRN PRN Reason: Perineal comfort measures Last Admin: 03/09/19 03:55 Dose: 1 spray Carboprost Tromethamine (Hemabate Ds) 250 mcg IM ASDIRECTED PRN PRN Reason: HEMORRHAGE Docusate Sodium (Colace) 100 mg PO BID PRN PRN Reason: Constipation Last Admin: 03/10/19 07:57 Dose: 100 mg Hydroxyzine HCl (Atarax) 50 mg PO BID PRN PRN Reason: Anxiety Oxytocin/Sodium Chloride (Pitocin In Ns 30 Unit/500 Ml) 30 unit in 500 mls @ 2 mls/hr IV TITRATE PRESTON; Protocol Last Titration: 03/09/19 03:20 Dose: 0 mls/hr Ibuprofen (Motrin) 800 mg PO Q8H PRN PRN Reason: Mild Pain or Fever Last Admin: 03/09/19 22:31 Dose: 800 mg Methylergonovine Maleate (Methergine) 0.2 mg IM ASDIRECTED PRN PRN Reason: Hemorrhage Misoprostol (Cytotec) 800 mcg RECTAL ASDIRECTED PRN PRN Reason: Hemorrhage Ondansetron HCl (Zofran) 4 mg IV Q4H PRN PRN Reason: Nausea/Vomiting Oxytocin (Pitocin) 10 unit IM ONETIME PRN PRN Reason: Bleeding Simethicone (Simethicone) 80 mg PO Q4H PRN PRN Reason: Gas Sodium Chloride (Saline Flush) 10 ml FLUSH ASDIRECTED PRN PRN Reason: Keep Vein Open Discontinued Medications Fentanyl (Sublimaze) 50 mcg IVPUSH Q1H PRN PRN Reason: Pain (moderate 4-6) Lactated Ringer's (Ringers, Lactated) 500 mls @ 999 mls/hr IV .BOLUS ONE Stop: 03/08/19 12:47 Last Admin: 03/09/19 05:19 Dose: Not Given Lactated Ringer's (Ringers, Lactated) 1,000 mls @ 125 mls/hr IV ASDIRECTED PRESTON Last Admin: 03/08/19 13:03 Dose: 125 mls/hr Tranexamic Acid 1,000 mg/ (Sodium Chloride) 110 mls @ 660 mls/hr IV ONETIME PRN PRN Reason: Bleeding Lidocaine HCl (Xylocaine-Mpf 1%) 30 ml INJECT ASDIRECTED PRN PRN Reason: Perineal Repair Last Admin: 03/08/19 23:15 Dose: 30 ml Nalbuphine HCl (Nubain) 20 mg IM Q3H PRN PRN Reason: Pain Last Admin: 03/08/19 20:36 Dose: 20 mg Nalbuphine HCl (Nubain) 10 mg IV Q3H PRN PRN Reason: Pain - Exam General: Reports: Alert, Oriented HEENT: Reports: Mucous Membr. Moist/[place] Lungs: Reports: Clear to Auscultation, Normal Respiratory Effort Cardiovascular: Reports: Regular Rate, Regular Rhythm, No Murmurs Back Exam: Reports: Normal Inspection Extremities: Pedal Edema (Trace to lower extremities bilaterally--improved) Skin: Reports: Warm, Dry, Intact
[2019-03-10 14:30] VITALS: BP 125/87; PULSE 104
== END 2019-03-10 14:10 | disposition home or self-care (01) | DRG 560 ==
LOC: DL.OB 11:11 → UNDOADMIN 11:55 → DL.OB 12:17 → UNDOADMIN 12:17
PROVIDERS: ADMIT Family Medicine; ATTEND Family Medicine
PROC: 10D07Z6 Extraction of Products of Conception, Vacuum, Via Natural or Artificial Opening (ICD-10-PCS; principal; 2019-03-08)
PROC: 10907ZC Drainage of Amniotic Fluid, Therapeutic from Products of Conception, Via Natural or Artificial Opening (ICD-10-PCS; 2019-03-08)
PROC: 0KQM0ZZ Repair Perineum Muscle, Open Approach (ICD-10-PCS; 2019-03-08)
PROC: 3E033VJ Introduction of Other Hormone into Peripheral Vein, Percutaneous Approach (ICD-10-PCS; 2019-03-08)
DX: O14.04 Mild to moderate pre-eclampsia, complicating childbirth (principal); O70.1 Second degree perineal laceration during delivery; O76 Abnormality in fetal heart rate and rhythm complicating labor and delivery; Z3A.38 38 weeks gestation of pregnancy; Z37.0 Single live birth
CPT/HCPCS: 36415; 59409; 82565; 83615; 84450; 84460; 84520; 84550; 85027; A9270-GY; J2001; J2300; J2590; J7120

== ENCOUNTER 2019-08-21 05:03 | Emergency (ER) | payer MEDICAID ==
[2019-08-21] MEDS ORDERED: GI Cocktail Oral Solution 30 ML PO ONE ×2 (05:04→05:31)
[2019-08-21 05:13] VITALS: BP 122/79; PULSE 98
--- NOTE | 2019-08-21 05:39 | EDM.PDOC ---
ED HPI GENERAL MEDICAL PROBLEM - General Chief Complaint: Abdominal Pain Stated Complaint: STOMACH AND CHEST PAIN Time Seen by Provider: 08/21/19 05:34 Source of Information: Reports: Patient History Limitations: Reports: No Limitations - History of Present Illness INITIAL COMMENTS - FREE TEXT/NARRATIVE: onset of recurrent epiG pain, vomited x1, was here last week with same, had negative GB [place].S. ate hamburger helper tonight. 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 has had miscarriage in the past Psychiatric History: Reports: Anxiety, Depression Hematologic History: Reports: Anemia Social & Family History - Family History Family Medical History: Noncontributory Respiratory: Reports: Asthma Other Respiratory Family Hisory: dad and sister have asthma - Tobacco Use Smoking Status *Q: Never Smoker - Caffeine Use Caffeine Use: Reports: Coffee, Soda - Recreational Drug Use Recreational Drug Use: No - Sexual History Sexual History: Reports: Sexually Active - Living Situation & Occupation Living situation: Reports: Single, with Family Occupation: Employed ED ROS GENERAL - Review of Systems Review Of Systems: ROS reveals no pertinent complaints other than HPI. ED EXAM, GI/ABD - Physical Exam Exam: See Below Exam Limited By: No Limitations General Appearance: Alert, WD/WN, Mild Distress, Other (discomfort). No: Active Emesis Ears: Hearing Grossly Normal Throat/Mouth: Normal Voice, No Airway Compromise Head: Atraumatic Neck: Non-Tender, Full Range of Motion Respiratory/Chest: No Respiratory Distress Cardiovascular: Regular Rate, Rhythm GI/Abdominal Exam: Soft, Tender, Other (epig region). No: Distended, Guarding, Rigid, Rebound Neurological: Alert, Oriented, Normal Cognition, Normal Gait, No Motor/Sensory Deficits Psychiatric: Normal Affect, Normal Mood Skin Exam: Warm, Dry, Normal Color Lymphatic: No Adenopathy Course - Vital Signs Last Recorded V/S: Last Vital Signs Temp 36.4 C 08/21/19 05:09 Pulse 98 08/21/19 05:09 Resp 16 08/21/19 05:09 BP 122/79 08/21/19 05:09 Pulse Ox 99 08/21/19 05:09 - Orders/Labs/Meds Meds: Medications Discontinued Medications Generic Name Dose Route Start Last Admin Trade Name Bhupinder PRN Reason Stop Dose Admin Al Hydroxide/Mg Hydroxide 30 ml 08/21/19 05:31 08/21/19 05:35 Gi Cocktail PO 08/21/19 05:32 30 ml ONETIME ONE Administration Ondansetron HCl 4 mg 08/21/19 05:50 08/21/19 05:53 Zofran Odt PO 08/21/19 05:51 4 mg ONETIME ONE Administration - Re-Assessments/Exams Free Text/Narrative Re-Assessment/Exam: 08/21/19 06:19 s/p GI cocktail = much better Departure - Departure Time of Disposition: 06:19 Disposition: Home, Self-Care 01 Condition: Good Clinical Impression: GERD with esophagitis - Discharge Information Instructions: Food Choices for Gastroesophageal Reflux Disease, Adult Forms: ED Department Discharge Additional Instructions: 1) avoid spicy foods 2) have bland diet today 3) recheck as needed rx togo; GI cocktail x 1
[2019-08-21] MEDS ORDERED: Ondansetron 4 MG Tab.DIS PO ONE (05:50)
[2019-08-21] MEDS ORDERED: GI Cocktail Oral Solution 30 ML ONE (06:18)
== END 2019-08-21 06:24 | disposition home or self-care (01) ==
LOC: DL.ED 05:03
DX: K21.0 Gastro-esophageal reflux disease with esophagitis (principal); Z86.2 Personal history of diseases of the blood and blood-forming organs and certain disorders involving the immune mechanism
CPT/HCPCS: 99283; A9270

== ENCOUNTER 2019-08-31 06:38 | Day surgery (SDC) | payer MEDICAID ==
[~2019-08-31 06:38] MED LIST: Midazolam 1 MG/ML 2 ML SDV ONE; fentaNYL 100 MCG/2 ML SDV ONE
[2019-08-31] MEDS ORDERED: Midazolam 1 MG/ML 2 ML SDV IV ONE ×3 (06:39→07:19)
[2019-08-31] MEDS ORDERED: fentaNYL 100 MCG/2 ML SDV IV ONE ×3 (06:39→07:18)
[2019-08-31] MEDS ORDERED: Sodium Chloride 0.9% 10 ML Syringe FLUSH PRN (07:30)
[2019-08-31] MEDS ORDERED: Dextrose 5%-0.45% NaCl 1,000 ML IV SCH (07:30)
[2019-08-31 10:33] VITALS: BP 117/62; PULSE 98
--- NOTE | 2019-08-31 13:36 | OR ---
DATE: 08/31/2019 PROCEDURE: Esophagogastroduodenoscopy and multiple pinch biopsies. INSTRUMENT USED: [id number] Olympus video panendoscope. PREMEDICATIONS: No oral or topical anesthesia used. Fentanyl 100 mcg intravenous, Versed 2 mg intravenous, nasal O2 cannula. The procedure was done under pulse oximetry, BP and pvc monitor. INDICATION: The patient with persistent chest and upper abdominal pain, unexplained and not responsive to medical measures. Esophagogastroduodenoscopy is performed for detection of any active erosive lesions, Anderson esophagus and/or malignancy also under consideration. H. pylori status to be determined, endoscopic hemostasis therapy if needed. PROCEDURE IN DETAIL: The scope was passed with ease. Adequate visualization of the esophagus was made from proximal to distal areas. No upper esophageal lesions identified. No distal esophageal stricture. No uphill or downhill esophageal varices. No Jihan-Lunsford tear. No evidence of erosive esophagitis by Waller criteria. No esophageal polyp or tumor mass identified. Z-line was seen at around 40 cm distal to the oral verge, configuration consistent with grade 1 by ZAP classification. No proximal gastric varices noted. Gastric fundus examination by retroflexion showed no polypoid lesions. No gastric ulcer, malignant mass, or vascular ectasia identified. Duodenal bulb showed no ulcer. Visualized second part of the duodenum was unremarkable. Multiple pinch biopsies were taken from the gastric antrum and proximal body and sent for PyloriTek test for H. pylori, and if negative in an hour, the tissue is to be sent for histopathology. No bleeding was noted from any of the visualized areas at the completion of examination. Photographs were taken of the duodenal bulb, gastric antrum, fundus, and distal esophagus. IMPRESSION: Normal study. The patient tolerated the procedure well. [facility] /[id number]
== END 2019-08-31 09:26 | disposition home or self-care (01) ==
LOC: DL.ENDO 06:38
PROVIDERS: ATTEND Internal Medicine Gastroenterology
DX: R10.10 Upper abdominal pain, unspecified (principal); R07.9 Chest pain, unspecified; K21.9 Gastro-esophageal reflux disease without esophagitis; E66.09 Other obesity due to excess calories; Z68.36 Body mass index [BMI] 36.0-36.9, adult
CPT/HCPCS: 43239; 87077; J2250; J3010; J7042

== ENCOUNTER 2021-05-14 07:32 | Emergency (ER) | payer MEDICAID ==
[2021-05-14 07:45] VITALS: BP 126/73; PULSE 117
[2021-05-14] MEDS ORDERED: Ondansetron 4 MG/2 ML SDV IVPUSH ONE (08:05)
--- NOTE | 2021-05-14 08:13 | EDM.PDOC ---
ED HPI GENERAL MEDICAL PROBLEM - General Chief Complaint: Abdominal Pain Stated Complaint: STOMACH PAIN Time Seen by Provider: 05/14/21 07:55 Source of Information: Reports: Patient History Limitations: Reports: No Limitations - History of Present Illness INITIAL COMMENTS - FREE TEXT/NARRATIVE: This 25 yo female patient reports to the ED with upper mid abdominal pain and nausea. The patient reports her pain and nausea started this morning at about 0200. The patient reports she did take 1 ibuprofen (200 mg) with no symptom relief. The patient did not take any additional medications for her current symptoms. The patient reports she has seen Dr. Traore in the past and was diagnosed with GERD. The patient reports she also had an ultrasound about 1 month ago revealing mild fatty liver, but no mention of the gallbladder or gallstones. The patient reports she was taking Omeprazole about 1 year ago, but did not have any changes in her symptoms after taking that. The patient reports her pain today is worse than it has been in the past. 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 Upper Abdomen Pain Score (Numeric/FACES): 8 - Related Data Allergies Allergy/AdvReac Type Severity Reaction Status Date / Time No Known Allergies Allergy Verified 05/14/21 07:45 Home Meds: Home Meds levonorgestreL [Lucila] 1 device .ROUTE ASDIRECTED MDD CONTROL 08/28/19 [History] Escitalopram [Lexapro] 10 mg PO BEDTIME 05/14/21 [History] Past Medical History - Past Health History Medical/Surgical History: Denies Medical/Surgical History HEENT History: Reports: None Cardiovascular History: Reports: None Respiratory History: Reports: None Gastrointestinal History: Reports: GERD, Other (See Below) Other Gastrointestinal History: MILD HEPATIC STEATOSIS Genitourinary History: Reports: None GIRL FRIDAY History: Reports: Other (See Below) Other GIRL FRIDAY History: had some first trimester spotting with this . has had miscarriage in the past Musculoskeletal History: Reports: None Neurological History: Reports: None Psychiatric History: Reports: Anxiety, Depression Endocrine/Metabolic History: Reports: Obesity/BMI 30+ Hematologic History: Reports: Anemia Immunologic History: Reports: None Oncologic (Cancer) History: Reports: None Dermatologic History: Reports: None - Infectious Disease History Infectious Disease History: Reports: None - Past Surgical History Head Surgeries/Procedures: Reports: None HEENT Surgical History: Reports: None GI Surgical History: Reports: None Female Surgical History: Reports: None Endocrine Surgical History: Reports: None Musculoskeletal Surgical History: Reports: None Oncologic Surgical History: Reports: None Social & Family History - Family History Family Medical History: No Pertinent Family History Respiratory: Reports: Asthma Other Respiratory Family Hisory: dad and sister have asthma - Tobacco Use Tobacco Use Status *Q: Never Tobacco User Second Hand Smoke Exposure: No - Caffeine Use Caffeine Use: Reports: Coffee, Soda - Recreational Drug Use Recreational Drug Use: No - Sexual History Sexual History: Reports: Sexually Active - Living Situation & Occupation Living situation: Reports: Single, with Family Occupation: Employed ED ROS GENERAL - Review of Systems Review Of Systems: Comprehensive ROS is negative, except as noted in HPI. ED EXAM, GI/ABD - Physical Exam Exam: See Below Exam Limited By: No Limitations General Appearance: Alert, WD/WN, Moderate Distress, Obese Eyes: Bilateral: Normal Appearance, EOMI Ears: Normal External Exam, Normal Canal, Hearing Grossly Normal, Normal TMs Nose: Normal Inspection, Normal Mucosa, No Blood Throat/Mouth: Normal Inspection, Normal Lips, Normal Teeth, Normal Gums, Normal Oropharynx, Normal Voice, No Airway Compromise Head: Atraumatic, Normocephalic Neck: Normal Inspection, Supple, Non-Tender, Full Range of Motion Respiratory/Chest: No Respiratory Distress, Lungs Clear, Normal Breath Sounds, No Accessory Muscle Use, Chest Non-Tender Cardiovascular: Normal Peripheral Pulses, Regular Rate, Rhythm, No Edema, No Gallop, No JVD, No Murmur, No Rub GI/Abdominal Exam: No Organomegaly, No Distention, No Abnormal Bruit, No Mass, Pelvis Stable, Tender (mid upper abdominal tenderness to palpation) (Female) Exam: Deferred Rectal (Female) Exam: Deferred Back Exam: Normal Inspection, Full Range of Motion, NT Extremities: Normal Inspection, Normal Range of Motion, Non-Tender, Normal Capillary Refill, No Pedal Edema Neurological: Alert, Oriented, CN II-XII Intact, Normal Cognition, Normal Gait, Normal Reflexes, No Motor/Sensory Deficits Psychiatric: Normal Affect, Normal Mood Skin Exam: Warm, Dry, Intact, Normal Color, No Rash Lymphatic: No Adenopathy Course - Vital Signs Last Recorded V/S: Last Vital Signs Temp 97.5 F 05/14/21 07:39 Pulse 117 H 05/14/21 07:39 Resp 16 05/14/21 07:39 BP 126/73 05/14/21 07:39 Pulse Ox 96 05/14/21 07:39 - Orders/Labs/Meds Orders: Active Orders 24 hr Category Date Time Status CULTURE BLOOD [BC] Stat Lab 05/14/21 08:00 Ordered CULTURE URINE [RM] Stat Lab 05/14/21 08:19 Received Labs: Laboratory Tests 05/14/21 05/14/21 05/14/21 Range/Units 08:09 08:09 08:09 WBC 7.0 (5.0-10.0) 10^3/uL RBC 5.12 (4.2-5.4) 10^6/uL Hgb 14.9 (12.0-16.0) g/dL Hct 42.8 (37.0-47.0) % MCV 83.6 (80-100) fL MCH 29.1 (27.0-34.0) pg MCHC 34.8 (33.0-35.0) g/dL Plt Count 267 (150-450) 10^3/uL Neut % (Auto) 76.9 H (42.2-75.2) % Lymph % (Auto) 15.3 L (20.5-50.1) % [place] % (Auto) 6.7 (2-8) % Eos % (Auto) 1.0 (1.0-3.0) % Baso % (Auto) 0.1 (0.0-1.0) % Sodium 140 (136-145) mmol/L Potassium 4.1 (3.5-5.1) mmol/L Chloride 104 (98-107) mmol/L Carbon Dioxide 25 (21-32) mmol/L Anion Gap 15.1 H (7-13) mEq/L BUN 14 (7-18) mg/dL Creatinine 0.74 (0.55-1.02) mg/dL Est Cr Clr Drug Dosing 88.46 mL/min Estimated GFR (MDRD) > 60 BUN/Creatinine Ratio 18.9 (No establ ref range) Glucose 86 (70-99) mg/dL Lactic Acid 0.6 (0.4-2.0) mmol/L Calcium 8.4 L (8.5-10.1) mg/dL Total Bilirubin 0.4 (0.2-1.0) mg/dL AST 15 (15-37) U/L ALT 28 (14-59) U/L Alkaline Phosphatase 87 (46-116) U/L Total Protein 7.2 (6.4-8.2) g/dL Albumin 3.6 (3.4-5.0) g/dL Globulin 3.6 Albumin/Globulin Ratio 1.0 Amylase (25-115) U/L Lipase (73-393) U/L Urine Color (YELLOW) Urine Appearance (CLEAR) Urine pH (5.0-9.0) Ur Specific [place] (1.005-1.030) Urine Protein (NEGATIVE) Urine Glucose (UA) (NEGATIVE) Urine Ketones (NEGATIVE) Urine Occult Blood (NEGATIVE) Urine Nitrite (NEGATIVE) Urine Bilirubin (NEGATIVE) Urine Urobilinogen (0.2-1.0) mg/dL Ur Leukocyte Esterase (NEGATIVE) Urine RBC /HPF Urine WBC (0-5/HPF) /HPF Ur Epithelial Cells (NOT SEEN) /HPF Amorphous Sediment (NOT SEEN) /HPF Urine Bacteria (0-FEW/HPF) /HPF Urine Mucus (NOT SEEN) /LPF Urine HCG, Qual Urine Opiates Screen (NEGATIVE) Ur Oxycodone Screen (NEGATIVE) Urine Methadone Screen (NEGATIVE) Ur Barbiturates Screen (NEGATIVE) U Tricyclic Antidepress (NEGATIVE) Ur Phencyclidine Scrn (NEGATIVE) Ur Amphetamine Screen (NEGATIVE) U Methamphetamines Scrn (NEGATIVE) Urine MDMA Screen (NEGATIVE) U Benzodiazepines Scrn (NEGATIVE) Urine Cocaine Screen (NEGATIVE) U Marijuana (THC) Screen (NEGATIVE) 05/14/21 05/14/21 05/14/21 Range/Units 08:09 08:19 08:19 WBC (5.0-10.0) 10^3/uL RBC (4.2-5.4) 10^6/uL Hgb (12.0-16.0) g/dL Hct (37.0-47.0) % MCV (80-100) fL MCH (27.0-34.0) pg MCHC (33.0-35.0) g/dL Plt Count (150-450) 10^3/uL Neut % (Auto) (42.2-75.2) % Lymph % (Auto) (20.5-50.1) % [place] % (Auto) (2-8) % Eos % (Auto) (1.0-3.0) % Baso % (Auto) (0.0-1.0) % Sodium (136-145) mmol/L Potassium (3.5-5.1) mmol/L Chloride (98-107) mmol/L Carbon Dioxide (21-32) mmol/L Anion Gap (7-13) mEq/L BUN (7-18) mg/dL Creatinine (0.55-1.02) mg/dL Est Cr Clr Drug Dosing mL/min Estimated GFR (MDRD) BUN/Creatinine Ratio (No establ ref range) Glucose (70-99) mg/dL Lactic Acid (0.4-2.0) mmol/L Calcium (8.5-10.1) mg/dL Total Bilirubin (0.2-1.0) mg/dL AST (15-37) U/L ALT (14-59) U/L Alkaline Phosphatase (46-116) U/L Total Protein (6.4-8.2) g/dL Albumin (3.4-5.0) g/dL Globulin Albumin/Globulin Ratio Amylase 37 (25-115) U/L Lipase 77 (73-393) U/L Urine Color Yellow (YELLOW) Urine Appearance Cloudy (CLEAR) Urine pH 6.0 (5.0-9.0) Ur Specific [place]mann >= 1.030 (1.005-1.030) Urine Protein Negative (NEGATIVE) Urine Glucose (UA) Negative (NEGATIVE) Urine Ketones Negative (NEGATIVE) Urine Occult Blood Moderate H (NEGATIVE) Urine Nitrite Negative (NEGATIVE) Urine Bilirubin Negative (NEGATIVE) Urine Urobilinogen 0.2 (0.2-1.0) mg/dL Ur Leukocyte Esterase Moderate H (NEGATIVE) Urine RBC 5-10 H /HPF Urine WBC 75-100 H (0-5/HPF) /HPF Ur Epithelial Cells Many H (NOT SEEN) /HPF Amorphous Sediment Few (NOT SEEN) /HPF Urine Bacteria Many H (0-FEW/HPF) /HPF Urine Mucus Few H (NOT SEEN) /LPF Urine HCG, Qual Negative Urine Opiates Screen (NEGATIVE) Ur Oxycodone Screen (NEGATIVE) Urine Methadone Screen (NEGATIVE) Ur Barbiturates Screen (NEGATIVE) U Tricyclic Antidepress (NEGATIVE) Ur Phencyclidine Scrn (NEGATIVE) Ur Amphetamine Screen (NEGATIVE) U Methamphetamines Scrn (NEGATIVE) Urine MDMA Screen (NEGATIVE) U Benzodiazepines Scrn (NEGATIVE) Urine Cocaine Screen (NEGATIVE) U Marijuana (THC) Screen (NEGATIVE) 05/14/21 Range/Units 08:19 WBC (5.0-10.0) 10^3/uL RBC (4.2-5.4) 10^6/uL Hgb (12.0-16.0) g/dL Hct (37.0-47.0) % MCV (80-100) fL MCH (27.0-34.0) pg MCHC (33.0-35.0) g/dL Plt Count (150-450) 10^3/uL Neut % (Auto) (42.2-75.2) % Lymph % (Auto) (20.5-50.1) % [place] % (Auto) (2-8) % Eos % (Auto) (1.0-3.0) % Baso % (Auto) (0.0-1.0) % Sodium (136-145) mmol/L Potassium (3.5-5.1) mmol/L Chloride (98-107) mmol/L Carbon Dioxide (21-32) mmol/L Anion Gap (7-13) mEq/L BUN (7-18) mg/dL Creatinine (0.55-1.02) mg/dL Est Cr Clr Drug Dosing mL/min Estimated GFR (MDRD) BUN/Creatinine Ratio (No establ ref range) Glucose (70-99) mg/dL Lactic Acid (0.4-2.0) mmol/L Calcium (8.5-10.1) mg/dL Total Bilirubin (0.2-1.0) mg/dL AST (15-37) U/L ALT (14-59) U/L Alkaline Phosphatase (46-116) U/L Total Protein (6.4-8.2) g/dL Albumin (3.4-5.0) g/dL Globulin Albumin/Globulin Ratio Amylase (25-115) U/L Lipase (73-393) U/L Urine Color (YELLOW) Urine Appearance (CLEAR) Urine pH (5.0-9.0) Ur Specific [place]mann (1.005-1.030) Urine Protein (NEGATIVE) Urine Glucose (UA) (NEGATIVE) Urine Ketones (NEGATIVE) Urine Occult Blood (NEGATIVE) Urine Nitrite (NEGATIVE) Urine Bilirubin (NEGATIVE) Urine Urobilinogen (0.2-1.0) mg/dL Ur Leukocyte Esterase (NEGATIVE) Urine RBC /HPF Urine WBC (0-5/HPF) /HPF Ur Epithelial Cells (NOT SEEN) /HPF Amorphous Sediment (NOT SEEN) /HPF Urine Bacteria (0-FEW/HPF) /HPF Urine Mucus (NOT SEEN) /LPF Urine HCG, Qual Urine Opiates Screen Negative (NEGATIVE) Ur Oxycodone Screen Negative (NEGATIVE) Urine Methadone Screen Negative (NEGATIVE) Ur Barbiturates Screen Negative (NEGATIVE) U Tricyclic Antidepress Negative (NEGATIVE) Ur Phencyclidine Scrn Negative (NEGATIVE) Ur Amphetamine Screen Negative (NEGATIVE) U Methamphetamines Scrn Negative (NEGATIVE) Urine MDMA Screen Negative (NEGATIVE) U Benzodiazepines Scrn Negative (NEGATIVE) Urine Cocaine Screen Negative (NEGATIVE) U Marijuana (THC) Screen Negative (NEGATIVE) Meds: Medications Discontinued Medications Generic Name Dose Route Start Last Admin Trade Name Bhupinder PRN Reason Stop Dose Admin Al Hydroxide/Mg Hydroxide 30 ml 05/14/21 09:07 05/14/21 09:21 Gi Cocktail Oral Solution 30 Ml PO 05/14/21 09:08 30 ml ONETIME ONE Administration Ondansetron HCl 4 mg 05/14/21 08:05 05/14/21 08:13 Ondansetron 4 Mg/2 Ml Sdv IVPUSH 05/14/21 08:06 4 mg ONETIME ONE Administration Pantoprazole Sodium 40 mg 05/14/21 09:07 05/14/21 09:20 Pantoprazole 40 Mg Vial IVPUSH 05/14/21 09:08 40 mg ONETIME ONE Administration - Re-Assessments/Exams Free Text/Narrative Re-Assessment/Exam: 05/14/21 09:08 The patient was advised of the lab results. The patient reported her nausea had improved, but she continues to have intermittent upper abdominal pains. Departure - Departure Time of Disposition: 09:43 Disposition: Home, Self-Care 01 Condition: Fair Clinical Impression: PUD (peptic ulcer disease) - Discharge Information *PRESCRIPTION DRUG MONITORING PROGRAM REVIEWED*: Not Applicable *COPY OF PRESCRIPTION DRUG MONITORING REPORT IN PATIENT THAD: Not Applicable Instructions: Peptic Ulcer, [id number], Food Choices for Gastroesophageal Reflux Disease, Adult Forms: ED Department Discharge Care Plan Goals: The patient was advised of the examination and lab results during the visit. The patient was given an IV dose of Zofran, an IV dose of Protonix and an oral GI Cocktail during the visit. The patient was given a script for Omeprazole (20 mg) #30 to take 1 by mouth 30 minutes prior to meals. The patient was encouraged to follow-up with her primary care facility. If the patient has any additional symptoms or concerns, the patient should either return to the emergency department or visit her primary care facility. Sepsis Event Note (ED) - Evaluation Sepsis Screening Result: No Definite Risk - Focused Exam Vital Signs: Vital Signs Temp Pulse Resp BP Pulse Ox 05/14/21 07:39 97.5 F 117 H 16 126/73 96 - My Orders Last 24 Hours: My Active Orders 05/14/21 08:00 CULTURE BLOOD [BC] Stat 05/14/21 08:19 CULTURE URINE [RM] Stat - Assessment/Plan Last 24 Hours: My Active Orders 05/14/21 08:00 CULTURE BLOOD [BC] Stat 05/14/21 08:19 CULTURE URINE [RM] Stat
[2021-05-14 08:56] LABS: ANION GAP 15.1 mEq/L (7-13); CHLORIDE,CL 104 mmol/L (98-107); SODIUM,NA 140 mmol/L (136-145)
[2021-05-14] MEDS ORDERED: GI Cocktail Oral Solution 30 ML PO ONE (09:07)
[2021-05-14] MEDS ORDERED: Pantoprazole 40 MG Vial IVPUSH ONE (09:07)
== END 2021-05-14 09:54 | disposition home or self-care (01) ==
LOC: DL.ED 07:32
DX: K27.9 Peptic ulcer, site unspecified, unspecified as acute or chronic, without hemorrhage or perforation (principal); E66.9 Obesity, unspecified; Z68.36 Body mass index [BMI] 36.0-36.9, adult; Z79.899 Other long term (current) drug therapy
CPT/HCPCS: 36415; 80053; 80305; 81001; 81025; 82150; 83605; 83690; 85025; 87040; 87086; 96374; 96375; 99283; 99284; A9270; C9113; J2405

== ENCOUNTER 2024-09-02 07:59 | Emergency (ER) | payer MEDICAID ==
[2024-09-02 08:29] LABS: BASOPHILS PERCENT AUTO 0.3 % (0.0-1.0); EOSINOPHILS PERCENT AUTO 1.9 % (1.0-3.0); HEMATOCRIT 40.2 % (37.0-47.0); HEMOGLOBIN 13.9 g/dL (12.0-16.0); LYMPHOCYTES PERCENT AUTO 26.4 % (20.5-50.1); MEAN CORPUSCULAR HEMOGLOBIN 30.5 pg (27.0-34.0); MEAN CORPUSCULAR HGB CONC 34.6 g/dL (33.0-35.0); MEAN CORPUSCULAR VOLUME 88.2 fL (80-100); NEUTROPHILS PERCENT AUTO 60.4 % (42.2-75.2); PLATELET COUNT,PLT 256 10^3/uL (150-450); RED BLOOD CELL COUNT 4.56 10^6/uL (4.2-5.4); WHITE BLOOD CELL COUNT,WBC 5.7 10^3/uL (5.0-10.0)
[2024-09-02] MEDS: Sodium Chloride 0.9% 1,000 ML IV ONE (08:29)
[2024-09-02 08:53] LABS: ALBUMIN 3.6 g/dL (3.4-5.0); ANION GAP 8.8 mEq/L (7-13); BILIRUBIN TOTAL 0.5 mg/dL (0.2-1.0); BUN/CREATININE RATIO 11.6 (No establ ref range); CALCIUM 9.1 mg/dL (8.5-10.1); CREATININE 0.69 mg/dL (0.55-1.02); EST CRCL DRUG DOSING (CG) 91.6 mL/min; POTASSIUM,K 3.8 mmol/L (3.5-5.1); PROTEIN TOTAL,TP 7.2 g/dL (6.4-8.2)
[2024-09-02 09:08] VITALS: BP 105/69; PULSE 80
[2024-09-02 11:28] LABS: AMPHETAMINES,URINE NEGATIVE (NEGATIVE); APPEARANCE,URINE CLEAR (CLEAR); BARBITURATES,URINE NEGATIVE (NEGATIVE); BENZODIAZEPINE,URINE NEGATIVE (NEGATIVE); BILIRUBIN,URINE NEGATIVE (NEGATIVE); COLOR,URINE YELLOW (YELLOW); GLUCOSE,URINE NEGATIVE (NEGATIVE); KETONES,URINE NEGATIVE (NEGATIVE); LEUKOCYTE ESTERASE,URINE NEGATIVE (NEGATIVE); MDMA (ECSTASY), URINE NEGATIVE (NEGATIVE); METHADONE,URINE NEGATIVE (NEGATIVE); METHAMPHETAMINES,URINE NEGATIVE (NEGATIVE); NITRITE,URINE NEGATIVE (NEGATIVE); OCCULT BLOOD,URINE TRACE-INTACT (NEGATIVE); OPIATES,URINE NEGATIVE (NEGATIVE); OXYCODONE,URINE NEGATIVE (NEGATIVE); PHENCYCLIDINE,URINE NEGATIVE (NEGATIVE); PROTEIN,URINE NEGATIVE (NEGATIVE); TCA,URINE NEGATIVE (NEGATIVE); UROBILINOGEN,URINE 0.2 mg/dL (0.2-1.0)
[2024-09-02 11:44] LABS: BACTERIA,URINE RARE /HPF (0-FEW/HPF); EPITHELIAL CELLS,URINE RARE /HPF (NOT SEEN); RBC,URINE 0-5 /HPF (0-5); WBC,URINE NOT SEEN /HPF (0-5/HPF)
== END 2024-09-02 11:49 | disposition home or self-care (01) ==
LOC: DL.ED 07:59
DX: O20.8 Other hemorrhage in early pregnancy (principal); K21.9 Gastro-esophageal reflux disease without esophagitis; Z79.899 Other long term (current) drug therapy
CPT/HCPCS: 36415; 76801; 80053; 80074; 80305-QW; 81001; 84702; 85025; 96360; 96361; 99284-25; J7030

== ENCOUNTER 2024-10-09 09:44 | Emergency (ER) | payer MEDICAID ==
[2024-10-09 10:02] VITALS: BP 142/77; PULSE 89
[2024-10-09 10:26] LABS: APPEARANCE,URINE CLEAR (CLEAR); BILIRUBIN,URINE NEGATIVE (NEGATIVE); COLOR,URINE YELLOW (YELLOW); GLUCOSE,URINE NEGATIVE (NEGATIVE); KETONES,URINE NEGATIVE (NEGATIVE); LEUKOCYTE ESTERASE,URINE NEGATIVE (NEGATIVE); NITRITE,URINE NEGATIVE (NEGATIVE); OCCULT BLOOD,URINE NEGATIVE (NEGATIVE); PROTEIN,URINE NEGATIVE (NEGATIVE); UROBILINOGEN,URINE 0.2 mg/dL (0.2-1.0)
== END 2024-10-09 10:45 | disposition home or self-care (01) ==
LOC: DL.ED 09:44
DX: O26.891 Other specified pregnancy related conditions, first trimester (principal); R10.2 Pelvic and perineal pain; Z79.899 Other long term (current) drug therapy; Z3A.11 11 weeks gestation of pregnancy
CPT/HCPCS: 81003; 99283; 99284

== ENCOUNTER 2025-04-05 07:58 | Inpatient (IN) | payer MEDICAID ==
[2025-04-05] MEDS ORDERED: fentaNYL 100 MCG/2 ML SDV IVPUSH PRN (09:04)
[2025-04-05] MEDS ORDERED: Acetaminophen 325 MG Tab PO PRN ×2 (09:04→21:48)
[2025-04-05] MEDS ORDERED: Tranexamic Acid 1,000 MG in Sodium Chloride 0.9% 100 ML IV PRN ×2 (09:04→21:48)
[2025-04-05] MEDS ORDERED: Misoprostol 100 MCG Tab RECTAL PRN ×2 (09:04→21:48)
[2025-04-05] MEDS ORDERED: Methylergonovine 0.2 MG/1 ML Amp IM PRN (09:04)
[2025-04-05] MEDS ORDERED: Sodium Chloride 0.9% 10 ML Syringe FLUSH PRN ×2 (09:04→21:48)
[2025-04-05] MEDS ORDERED: Carboprost Tromethamine 250 MCG/1 ML Amp IM PRN (09:04)
[2025-04-05] MEDS: Lactated Ringers 1,000 ML IV SCH (09:11)
[2025-04-05] MEDS: Oxytocin/Lactated Ringers 30 UNIT/500 ML BAG IV SCH (09:15)
[2025-04-05] MEDS ORDERED: Oxytocin/Normal Saline 30 UNIT/500 ML BAG IV SCH (09:15)
[2025-04-05 13:56] LABS: HEMATOCRIT 34.5 % (37.0-47.0); MEAN CORPUSCULAR HEMOGLOBIN 31.3 pg (27.0-34.0); MEAN CORPUSCULAR HGB CONC 34.8 g/dL (33.0-35.0); MEAN CORPUSCULAR VOLUME 89.8 fL (80-100); RED BLOOD CELL COUNT 3.84 10^6/uL (4.2-5.4); WHITE BLOOD CELL COUNT,WBC 9.7 10^3/uL (5.0-10.0)
[2025-04-05] MEDS ORDERED: ePHEDrine 50 MG/ML SDV IVPUSH PRN (20:33)
[2025-04-05] MEDS ORDERED: Phenylephrine HCl In 0.9% NaCl 1 MG/10 ML Syringe IVPUSH PRN (20:33)
[2025-04-05] MEDS: Ondansetron 4 MG/2 ML SDV IVPUSH PRN (20:35)
[2025-04-05] MEDS ORDERED: Ropivacaine 200 MG in Premix Bag 1 BAG EPIDUR SCH (20:45)
[2025-04-05] MEDS: Lidocaine 1% 30 ML SDV INJECT ONE (21:30)
[2025-04-05] MEDS ORDERED: Oxytocin 10 Units/1 ML SDV IM PRN (21:48)
[2025-04-05] MEDS ORDERED: Simethicone 80 MG Tab.Chew PO PRN (21:48)
[2025-04-05] MEDS: Witch Hazel Medicated Pads 100/Jar TOP PRN (23:31)
[2025-04-05] MEDS: Ibuprofen 800 MG Tab PO SCH (23:31)
[2025-04-05] MEDS: Benzocaine/Menthol 20%-0.5% Spray 78 GM Cannister TOP PRN (23:32)
[2025-04-06 06:04] LABS: HEMATOCRIT 32.2 % (37.0-47.0); HEMOGLOBIN 10.3 g/dL (12.0-16.0); MEAN CORPUSCULAR HEMOGLOBIN 28.7 pg (27.0-34.0); MEAN CORPUSCULAR VOLUME 89.7 fL (80-100); RED BLOOD CELL COUNT 3.59 10^6/uL (4.2-5.4); WHITE BLOOD CELL COUNT,WBC 12.9 10^3/uL (5.0-10.0)
[2025-04-06] MEDS: Docusate Sodium 100 MG Cap PO PRN (08:17)
[2025-04-06] MEDS: Prenatal Multivitamin with Calcium/Folic Acid/Iron Tab PO SCH (08:17)
[2025-04-06] MEDS: Lactated Ringers 1,000 ML IV ONE (08:29)
[2025-04-07 09:57] VITALS: BP 144/87; PULSE 84
== END 2025-04-07 11:00 | disposition home or self-care (01) | DRG 806 ==
LOC: DL.OB 07:58 → OBSVTOIN 21:16
PROVIDERS: ADMIT Family Medicine; ATTEND Family Medicine
PROC: 10907ZC Drainage of Amniotic Fluid, Therapeutic from Products of Conception, Via Natural or Artificial Opening (ICD-10-PCS; principal; 2025-04-05)
PROC: 3E033VJ Introduction of Other Hormone into Peripheral Vein, Percutaneous Approach (ICD-10-PCS; principal; 2025-04-05)
PROC: 3E0R3BZ Introduction of Anesthetic Agent into Spinal Canal, Percutaneous Approach (ICD-10-PCS; principal; 2025-04-05)
PROC: 10E0XZZ Delivery of Products of Conception, External Approach (ICD-10-PCS; principal; 2025-04-05)
PROC: 0HQ9XZZ Repair Perineum Skin, External Approach (ICD-10-PCS; principal; 2025-04-05)
DX: O13.4 Gestational [pregnancy-induced] hypertension without significant proteinuria, complicating childbirth (principal); O98.42 Viral hepatitis complicating childbirth; Z37.0 Single live birth; O62.3 Precipitate labor; B19.20 Unspecified viral hepatitis C without hepatic coma; Z3A.37 37 weeks gestation of pregnancy; O99.214 Obesity complicating childbirth; Z79.899 Other long term (current) drug therapy; O70.0 First degree perineal laceration during delivery
CPT/HCPCS: 36415; 59409; 85027; A9270-GY; J2003; J2405; J2590; J7120